=== PATIENT | female | born 1980 | race Caucasian/White ===

== ENCOUNTER → 2016-09-24 | Outpatient (CLI) | payer OTHER ==
[~2016-09-24] MED LIST: Hydrocodone Bit/Acetaminophen PO; IBP600T1 PO; Ibuprofen PO; OXYC-12 PO; PREN1TAB71 PO
--- OUTSIDE RECORDS SUMMARY | 2016-09-24 12:07 | XMS REPORT | Continuity of Care Document ---
Author Author [facility] Organization [facility] Address Unknown Phone Unavailable Allergies Active Description Code Type Severity Reaction Onset Reported/Identified Relationship to Patient Clinical Status Yes morphine [id number] Drug Allergy Unknown N/A 12/05/2010 Medications Problems Date Dx Coded Attending Type Code Diagnosis Diagnosed By 11/20/2010 Ot 658.13 ESPERANZA RUPT MEMB-ANTEPART 12/07/2010 Ot 646.81 PREG COMPL NEC-DELIVERED 12/07/2010 Ot 648.91 OTH CURR COND-DELIVERED 12/07/2010 Ot V02.51 GROUP B STREPT CARRIER/SUSPECTED CARRIER 12/07/2010 Ot V06.1 [id number], COMBINED [ 12/07/2010 Ot V27.0 DELIVER-SINGLE LIVEBORN 06/23/2014 KARI CONSTANTINO DO Ot 644.03 THRT ESPERANZA LABOR-ANTEPART 06/23/2014 KARI CONSTANTINO DO Ot 644.03 06/28/2014 KARI CONSTANTINO DO Ot 640.03 06/30/2014 KARI CONSTANTINO DO Ot 644.21 EARLY ONSET DELIVERY-DEL 06/30/2014 KARI CONSTANTINO DO Ot 659.71 ABN DEL FET HT RT/RHYTHM,W OR W/O MENTIO 06/30/2014 KARI CONSTANTINO DO Ot 663.11 CORD AROUND NECK-DELIVER 06/30/2014 KARI CONSTANTINO DO Ot V06.1 [id number], COMBINED [ 06/30/2014 KARI CONSTANTINO DO Ot V27.0 DELIVER-SINGLE LIVEBORN 02/21/2015 KARI CONSTANTINO DO Ot 640.03 02/16/2016 KARI CONSTANTINO DO Ot 640.03 THREATEN ABORT-ANTEPART Procedures Code Description Performed By Performed On 72.71 12/05/2010 73.59 06/28/2014 Results Encounters ACCT No. Visit Date/Time Discharge Status Pt. Type Provider Facility Loc./Unit Complaint [id number] 06/28/2014 19:00:00 2013 14:45:00 DIS Inpatient KARI CONSTANTINO DO [facility] [id number] 06/22/2014 16:38:00 2013 18:30:00 DIS Inpatient KARI CONSTANTINO DO [facility] [id number] 04/26/2013 10:10:00 2012 23:59:59 CLS Outpatient KARI CONSTANTINO DO [facility] [id number] 12/05/2010 12:42:00 Document Registration [id number] 11/20/2010 09:48:00 Document Registration
[2016-09-24 12:24] LABS: BASOPHILS % (AUTO) 0 % (0-10); EOSINOPHILS % (AUTO) 1 % (0-10); LYMPHOCYTES % (AUTO) 42 % (12-44); MEAN CORPUSCULAR HEMOGLOBIN 30 PG (25-34); MEAN CORPUSCULAR HGB CONC 35 G/DL (32-36); MEAN CORPUSCULAR VOLUME 88 FL (80-99); MEAN PLATELET VOLUME 9.7 FL (7.4-10.4); MONOCYTES # (AUTO) 0.2 X 10^3 (0.0-1.0); MONOCYTES % (AUTO) 4 % (0-12); NEUTROPHILS # (AUTO) 2.5 X 10^3 (1.8-7.8); NEUTROPHILS % (AUTO) 53 % (42-75); PLATELET COUNT 290 10^3/uL (130-400); RED BLOOD COUNT 4.49 10^6/uL (4.35-5.85); RED CELL DISTRIBUTION WIDTH 12.3 % (10.0-14.5); WHITE BLOOD COUNT 4.7 10^3/uL (4.3-11.0)
== END ==
LOC: LAB 12:02
PROVIDERS: ATTEND Nurse Practitioner
DX: D64.9 Anemia, unspecified (principal); R53.83 Other fatigue
CPT/HCPCS: 36415; 82607; 82728; 83540; 85025

== ENCOUNTER → 2018-04-13 | Outpatient (CLI) | payer OTHER, BC ==
--- NOTE | 2018-04-13 16:39 | Diagnostic Imaging Report ---
INDICATION: Slammed thumb in door. EXAMINATION: Right thumb. FINDINGS: There is a vertical fracture through the distal one-half of the distal phalanx of the right thumb. The fracture does not extend into the articulating surface. The inner phalangeal joint appears normal. The MP joint is normal. IMPRESSION: Nondisplaced vertical fracture through the distal one-half of the distal phalanx of the right thumb. Dictated by: Dictated on workstation # [id number]
== END ==
LOC: RAD 16:14
PROVIDERS: ATTEND Family Medicine
DX: S62.524A Nondisplaced fracture of distal phalanx of right thumb, initial encounter for closed fracture (principal); S60.111A Contusion of right thumb with damage to nail, initial encounter; W23.1XXA Caught, crushed, jammed, or pinched between stationary objects, initial encounter
CPT/HCPCS: 73140

== ENCOUNTER → 2019-01-29 | Outpatient (CLI) | payer OTHER, BC ==
[2019-01-29 07:48] LABS: BASOPHILS % (AUTO) 1 % (0-10); EOSINOPHILS % (AUTO) 1 % (0-10); HEMATOCRIT 39 % (35-52); HEMOGLOBIN 13.3 G/DL (11.5-16.0); LYMPHOCYTES # (AUTO) 1.4 X 10^3 (1.0-4.0); LYMPHOCYTES % (AUTO) 32 % (12-44); MEAN CORPUSCULAR HEMOGLOBIN 30 PG (25-34); MEAN CORPUSCULAR HGB CONC 35 G/DL (32-36); MEAN CORPUSCULAR VOLUME 88 FL (80-99); MEAN PLATELET VOLUME 9.4 FL (7.4-10.4); MONOCYTES # (AUTO) 0.3 X 10^3 (0.0-1.0); MONOCYTES % (AUTO) 6 % (0-12); NEUTROPHILS # (AUTO) 2.6 X 10^3 (1.8-7.8); NEUTROPHILS % (AUTO) 61 % (42-75); PLATELET COUNT 289 10^3/uL (130-400); RED CELL DISTRIBUTION WIDTH 12.2 % (10.0-14.5); WHITE BLOOD COUNT 4.3 10^3/uL (4.3-11.0)
[2019-01-29 08:08] LABS: ALANINE AMINOTRANSFERASE 11 U/L (0-55); ALBUMIN 4.3 GM/DL (3.2-4.5); ALKALINE PHOSPHATASE 33 U/L (40-136); BILIRUBIN,TOTAL 0.5 MG/DL (0.1-1.0); BUN/CREATININE RATIO 24; CALCIUM 8.8 MG/DL (8.5-10.1); CARBON DIOXIDE 23 MMOL/L (21-32); CHLORIDE 110 MMOL/L (98-107); CHOLESTEROL 172 MG/DL (< 200); CREATININE SERUM 0.79 MG/DL (0.60-1.30); GFR ESTIMATED > 60; GLUCOSE 88 MG/DL (70-105); HDL CHOLESTEROL 57 MG/DL (40-60); POTASSIUM 4.1 MMOL/L (3.6-5.0); SODIUM 141 MMOL/L (135-145); TOTAL PROTEIN 6.8 GM/DL (6.4-8.2); TRIGLYCERIDES 43 MG/DL (<150); VLDL CHOLESTEROL 9 MG/DL (5-40)
[2019-01-29 08:28] LABS: FREE T4 (FREE THYROXINE) 0.99 NG/DL (0.70-1.48)
== END ==
LOC: LAB 07:32
PROVIDERS: ATTEND Nurse Practitioner Family
DX: Z00.00 Encounter for general adult medical examination without abnormal findings (principal); Z13.220 Encounter for screening for lipoid disorders; R00.0 Tachycardia, unspecified
CPT/HCPCS: 36415; 80053; 80061; 84439; 84443; 85025

== ENCOUNTER → 2019-03-12 | Outpatient (CLI) | payer BC, OTHER ==
[2019-03-12 07:11] LABS: ALANINE AMINOTRANSFERASE 12 U/L (0-55); ALBUMIN 4.2 GM/DL (3.2-4.5); ALKALINE PHOSPHATASE 37 U/L (40-136); BILIRUBIN,TOTAL 0.4 MG/DL (0.1-1.0); BUN/CREATININE RATIO 23; CARBON DIOXIDE 24 MMOL/L (21-32); CHLORIDE 107 MMOL/L (98-107); CREATININE SERUM 0.81 MG/DL (0.60-1.30); GFR ESTIMATED > 60; GLUCOSE 97 MG/DL (70-105); POTASSIUM 4.1 MMOL/L (3.6-5.0); SODIUM 141 MMOL/L (135-145); TOTAL PROTEIN 6.8 GM/DL (6.4-8.2)
== END ==
LOC: LAB 06:45
PROVIDERS: ATTEND Family Medicine
DX: R74.8 Abnormal levels of other serum enzymes (principal)
CPT/HCPCS: 36415; 80053

== ENCOUNTER → 2020-12-02 | Outpatient (CLI) | payer BC ==
[2020-12-02 07:31] LABS: BASOPHILS % (AUTO) 1 % (0-10); EOSINOPHILS % (AUTO) 1 % (0-10); HEMATOCRIT 41 % (35-52); HEMOGLOBIN 13.5 g/dL (11.5-16.0); LYMPHOCYTES # (AUTO) 1.5 10^3/uL (1.0-4.0); LYMPHOCYTES % (AUTO) 32 % (12-44); MEAN CORPUSCULAR HEMOGLOBIN 30 pg (25-34); MEAN CORPUSCULAR HGB CONC 33 g/dL (32-36); MEAN CORPUSCULAR VOLUME 89 fL (80-99); MEAN PLATELET VOLUME 9.5 fL (9.0-12.2); MONOCYTES # (AUTO) 0.3 10^3/uL (0.0-1.0); MONOCYTES % (AUTO) 7 % (0-12); NEUTROPHILS # (AUTO) 2.9 10^3/uL (1.8-7.8); NEUTROPHILS % (AUTO) 60 % (42-75); PLATELET COUNT 312 10^3/uL (130-400); WHITE BLOOD COUNT 4.9 10^3/uL (4.3-11.0)
[2020-12-02 07:55] LABS: ALANINE AMINOTRANSFERASE 8 U/L (0-55); ALBUMIN 4.3 GM/DL (3.2-4.5); ALKALINE PHOSPHATASE 38 U/L (40-136); BILIRUBIN,TOTAL 0.4 MG/DL (0.1-1.0); BUN/CREATININE RATIO 16; CALCIUM 8.8 MG/DL (8.5-10.1); CARBON DIOXIDE 22 MMOL/L (21-32); CHLORIDE 109 MMOL/L (98-107); CHOLESTEROL 162 MG/DL (< 200); CREATININE SERUM 0.81 MG/DL (0.60-1.30); GFR ESTIMATED > 60; GLUCOSE 101 MG/DL (70-105); HDL CHOLESTEROL 55 MG/DL (40-60); POTASSIUM 4.2 MMOL/L (3.6-5.0); SODIUM 140 MMOL/L (135-145); TOTAL PROTEIN 7.1 GM/DL (6.4-8.2); TRIGLYCERIDES 54 MG/DL (<150); VLDL CHOLESTEROL 11 MG/DL (5-40)
== END ==
LOC: LAB 07:18
PROVIDERS: ATTEND Nurse Practitioner
DX: Z00.00 Encounter for general adult medical examination without abnormal findings (principal)
CPT/HCPCS: 36415; 80053; 80061; 84443; 85025

== ENCOUNTER → 2021-01-06 | Outpatient (CLI) | payer BC ==
[~2021-01-06] MED LIST changes: +HOLD METFORMIN - RECEIVED CONTRAST 20 ML VIAL IV SCH; +IOHEXOL 350 MG/ML 100 ML (OMNIPAQUE 350) VIAL IV ONE; +NS 100 ML (IVPB) BAG IV ONE
--- NOTE | 2021-01-06 12:41 | Diagnostic Imaging Report ---
PROCEDURE: CT abdomen and pelvis with and without contrast. TECHNIQUE: Precontrast acquisitions were acquired through the abdomen and pelvis. Multiple contiguous axial images were obtained through the abdomen and pelvis after the administration of intravenous contrast. Auto Exposure Controls were utilized during the CT exam to meet ALARA standards for radiation dose reduction. INDICATION: Abdominal and pelvic pain and bloating. COMPARISON: No prior studies are available for comparison. FINDINGS: The lung bases are clear. No discrete liver mass is detected. The gallbladder is surgically absent. No biliary ductal dilatation is seen. The pancreas and spleen are unremarkable. No adrenal mass is detected. No renal calculi are identified. There is no hydronephrosis. No ureteral or bladder calculi are detected. There is normal homogeneous enhancement of both kidneys without evidence of renal mass. Aorta is nonaneurysmal. No central retroperitoneal or mesenteric lymphadenopathy is seen. The small and large bowel loops are normal in caliber. Imaging through the pelvis does demonstrate a midline fluid-containing mass just cephalad to the bladder dome measuring 16 mm AP diameter x 60 mm transverse. There does appear to be peripheral enhancement. There is a large amount of perilesional inflammatory stranding. Features are most suggestive of an infected urachal cyst. The cyst does not fill with contrast. There is some adjacent bladder wall thickening involving the anterior bladder wall and bladder dome. No free fluid in the abdomen is identified. There is a small amount of free fluid in the pelvis. The uterus is unremarkable. No pelvic lymphadenopathy is identified. IMPRESSION: Midline cystic mass at the level of the bladder dome with a large amount of surrounding inflammatory stranding. 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 There is some adjacent wall thickening involving the bladder as well. No other significant abnormality is detected. Dictated by: Dictated on workstation # [id number]
== END ==
LOC: RAD 11:01
PROVIDERS: ATTEND Family Medicine
DX: N32.89 Other specified disorders of bladder (principal)
CPT/HCPCS: 74178

== ENCOUNTER → 2021-11-30 | Outpatient (CLI) | payer BC ==
[~2021-11-30] MED LIST changes: -HOLD METFORMIN - RECEIVED CONTRAST 20 ML VIAL IV SCH; -IOHEXOL 350 MG/ML 100 ML (OMNIPAQUE 350) VIAL IV ONE; -NS 100 ML (IVPB) BAG IV ONE
== END ==
LOC: LAB 07:40
PROVIDERS: ATTEND Physician Assistant
DX: D64.9 Anemia, unspecified (principal)
CPT/HCPCS: 36415; 82306; 82672; 82728; 83540; 83550; 84144; 84403

== ENCOUNTER → 2021-11-30 | Outpatient (CLI) | payer BC ==
[2021-11-30 08:11] LABS: BASOPHILS % (AUTO) 1 % (0-10); EOSINOPHILS # (AUTO) 0.1 10^3/uL (0.0-0.3); EOSINOPHILS % (AUTO) 2 % (0-10); HEMATOCRIT 39 % (35-52); HEMOGLOBIN 13.2 g/dL (11.5-16.0); LYMPHOCYTES # (AUTO) 1.5 10^3/uL (1.0-4.0); LYMPHOCYTES % (AUTO) 32 % (12-44); MEAN CORPUSCULAR HEMOGLOBIN 30 pg (25-34); MEAN CORPUSCULAR HGB CONC 34 g/dL (32-36); MEAN CORPUSCULAR VOLUME 90 fL (80-99); MEAN PLATELET VOLUME 9.4 fL (9.0-12.2); MONOCYTES # (AUTO) 0.3 10^3/uL (0.0-1.0); MONOCYTES % (AUTO) 6 % (0-12); NEUTROPHILS # (AUTO) 2.8 10^3/uL (1.8-7.8); NEUTROPHILS % (AUTO) 59 % (42-75); PLATELET COUNT 314 10^3/uL (130-400); WHITE BLOOD COUNT 4.8 10^3/uL (4.3-11.0)
[2021-11-30 08:51] LABS: ALBUMIN 4.3 GM/DL (3.2-4.5); BILIRUBIN,TOTAL 0.6 MG/DL (0.1-1.0); CALCIUM 8.9 MG/DL (8.5-10.1); CREATININE SERUM 0.77 MG/DL (0.60-1.30); POTASSIUM 3.8 MMOL/L (3.6-5.0)
== END ==
LOC: LAB 07:31
PROVIDERS: ATTEND Family Medicine
DX: Z00.00 Encounter for general adult medical examination without abnormal findings (principal); R00.0 Tachycardia, unspecified
CPT/HCPCS: 36415; 80053; 80061; 84439; 84443; 85025

== ENCOUNTER → 2022-12-20 | Outpatient (CLI) | payer BC ==
[2022-12-20 07:47] LABS: HEMATOCRIT 38 % (35-52); HEMOGLOBIN 12.8 g/dL (11.5-16.0); MEAN CORPUSCULAR HEMOGLOBIN 31 pg (25-34); MEAN CORPUSCULAR HGB CONC 34 g/dL (32-36); MEAN CORPUSCULAR VOLUME 90 fL (80-99); MEAN PLATELET VOLUME 9.5 fL (9.0-12.2); PLATELET COUNT 336 10^3/uL (130-400); WHITE BLOOD COUNT 5.2 10^3/uL (4.3-11.0)
[2022-12-20 07:48] LABS: ALBUMIN 4.2 GM/DL (3.2-4.5); POTASSIUM 4.2 MMOL/L (3.6-5.0)
[2022-12-20 07:49] LABS: CALCIUM 9.1 MG/DL (8.5-10.1)
[2022-12-20 07:50] LABS: TOTAL PROTEIN 6.7 GM/DL (6.4-8.2)
[2022-12-20 07:52] LABS: BILIRUBIN,TOTAL 0.3 MG/DL (0.1-1.0)
[2022-12-20 07:54] LABS: CREATININE SERUM 0.75 MG/DL (0.60-1.30)
== END ==
LOC: LAB 07:27
PROVIDERS: ATTEND Nurse Practitioner
DX: Z00.00 Encounter for general adult medical examination without abnormal findings (principal)
CPT/HCPCS: 36415; 80053; 80061; 84443; 85027

== ENCOUNTER → 2022-12-20 | Outpatient (CLI) | payer BC ==
--- NOTE | 2022-12-20 11:06 | Diagnostic Imaging Report ---
INDICATION: Bilateral 3-D screening mammograms COMPARISON: This is a baseline study. FINDINGS: There is mild to moderate breast parenchymal density. No spiculated mass or clustered microcalcifications identified. There is a fairly well-circumscribed 0.6 cm nodule in the slightly inferior central left breast at mid to posterior depth. There may be an adjacent smaller similar nodule, as well. No skin thickening or architectural distortion is noted. No pathologic adenopathy is appreciated in the axillary regions. IMPRESSION: Category 0, additional imaging suggested. Ultrasonography could be performed in the 6 o'clock position to confirm cystic or solid nature of 0.6 cm nodule in the left breast. ACR BI-RADS Category 0: Incomplete. (Needs additional imaging evaluation). Result letter will be mailed to the patient. Note: At least 10% of breast cancer is not imaged by mammography. Dictated by: Dictated on workstation # [id number]
== END ==
LOC: RAD 07:23
PROVIDERS: ATTEND Surgery
DX: Z12.31 Encounter for screening mammogram for malignant neoplasm of breast (principal); N63.25 Unspecified lump in the left breast, overlapping quadrants
CPT/HCPCS: 77063; 77067

== ENCOUNTER → 2022-12-25 | Outpatient (CLI) | payer BC ==
--- NOTE | 2022-12-25 12:54 | Diagnostic Imaging Report ---
INDICATION: Abnormal screening mammogram. COMPARISON: Correlation is made with the screening mammogram from 12/20/2022. TECHNIQUE: Sonographic interrogation of the inferior left breast was performed. FINDINGS: There is a circumscribed, rounded hypoechoic nodule at the 6 o'clock location 4-5 cm from the nipple measuring 4 x 5 x 5 mm. This does show some internal echoes and posterior acoustic enhancement. No definite internal vascularity is present. There is also a tiny adjacent ovoid hypoechoic nodule measuring 3 x 1 x 2 mm. No internal vascularity is seen. IMPRESSION: Hypoechoic nodules at the 6 o'clock location of the left breast 4 to 5 cm from the nipple which correlate with the densities noted mammographically. Imaging characteristics are most consistent with either complex cysts versus fibroadenomas. A followup left breast ultrasound in 6 months is recommended to show continued stability. ACR BI-RADS Category 3: Probably benign findings. Dictated by: Dictated on workstation # [id number]
== END ==
LOC: RAD 11:20
PROVIDERS: ATTEND Nurse Practitioner
DX: N63.25 Unspecified lump in the left breast, overlapping quadrants (principal)

== ENCOUNTER → 2023-06-24 | Outpatient (CLI) | payer BC ==
--- NOTE | 2023-06-24 10:23 | Diagnostic Imaging Report ---
INDICATION: Six-month followup of left breast nodules. COMPARISON: Correlation is made with the prior left breast ultrasound from 12/25/2022. FINDINGS: Sonographic interrogation of the 6 o'clock location of the left breast 5-6 cm from the nipple was performed. The hypoechoic nodule previously seen appears slightly smaller on today's study measuring approximately 3 mm x 3 mm. There is no internal vascularity. The tiny adjacent nodule just superior to this is approximately 2 mm in size, also similar to perhaps slightly smaller. No new masses are identified. IMPRESSION: Stable to perhaps slightly decreased size of the hypoechoic nodules at the 6 o'clock location of the left breast, consistent with benign etiologies. Patient may return to routine annual screening mammography. ACR BI-RADS Category 2: Benign findings. Dictated by: Dictated on workstation # [id number]
== END ==
LOC: RAD 09:00
PROVIDERS: ATTEND Nurse Practitioner
DX: N63.25 Unspecified lump in the left breast, overlapping quadrants (principal)